=== PATIENT | female | born 1985 | race African-American/Black ===

== ENCOUNTER 2017-06-20 11:21 | Outpatient (CLI) | payer OTHER ==
--- NOTE | 2017-06-20 12:10 | RAD ---
PA AND LATERAL CHEST: HISTORY: Positive TB skin test. FINDINGS: Heart size and mediastinum are within normal limits. The lungs are clear of infiltrates. No evidenc e of active TB. Minimal scoliotic changes of spine are noted. IMPRESSION: No active intrathoracic disease. POS: [facility]
== END 2017-06-20 11:22 | disposition home or self-care (01) ==
LOC: RAD 11:21
PROVIDERS: ATTEND Physical Medicine & Rehabilitation
DX: Z11.1 Encounter for screening for respiratory tuberculosis (principal)
CPT/HCPCS: 71046